=== PATIENT | female | born 1975 | race Caucasian/White ===

== ENCOUNTER 2017-04-19 08:38 | Emergency (ER) | payer BC ==
[2017-04-19 09:28] VITALS: BP 125/81
--- NOTE | 2017-04-19 09:36 | UC ---
Throat Pain/Nasal Jovany HPI - HPI Summary HPI Summary: SINUS PAIN AND PRESSURE X 4 WEEKS + NASAL CONGESTION , PND , NO FEVER, NO CHILLS - History of Current Complaint Chief Complaint: UCRespiratory Stated Complaint: CONGESTION SINUS Time Seen by Provider: 04/19/17 09:24 Hx Obtained From: Patient Hx Last Menstrual Period: 2009 Onset/Duration: Gradual Onset, Lasting Weeks - 4, Still Present Severity: Moderate Cough: None Associated Signs & Symptoms: Positive: Sinus Discomfort, Nasal Discharge. Negative: Dysphagia, FB Sensation, Drooling, Wheezing, Hoarseness, Fever, Vomiting, Rash - Allergies/Home Medications Allergies/Adverse Reactions: Allergies Allergy/AdvReac Type Severity Reaction Status Date / Time Bupropion [From Wellbutrin] Allergy Intermediate HTN Verified 04/19/17 09:19 Meperidine [From Demerol HCl] Allergy Intermediate vomit Verified 04/19/17 09:19 Celecoxib [From Celebrex] Allergy mouth sores Verified 04/19/17 09:19 Home Medications: Home Medications GuaiFENesin DM sugar free* [Robitussin DM sugar free*] 5 ml PO PRN 04/19/17 [ History] Ibuprofen TAB* [Advil TAB*] 800 mg PO Q8H PRN 04/19/17 [History Confirmed ] PMH/Surg Hx/FS Hx/Imm Hx - Additional Past Medical History Additional PMH: ? AUTOIMMUNE DISEASE Cardiovascular History: Hypertension - Surgical History Surgical History: Yes Surgery Procedure, Year, and Place: hysterectomy 2009. tonsillectomy 1994. 3 back surgeries/ L5S1 vetebral fusions- last surgery was 2009 - Family History Known Family History: Positive: Blood Disorder Negative: Diabetes Family History: HTN - Social History Alcohol Use: Rare Substance Use Type: None Smoking Status (MU): Never Smoked Tobacco - Immunization History Most Recent Influenza Vaccination: Not the 2014/2015 Season Review of Systems Constitutional: Negative Skin: Negative Eyes: Negative ENT: Sore Throat, Nasal Discharge, Sinus Congestion, Sinus Pain/Tenderness Respiratory: Cough Cardiovascular: Negative Gastrointestinal: Negative Genitourinary: Negative Is Patient Immunocompromised?: No All Other Systems Reviewed And Are Negative: Yes Physical Exam Triage Information Reviewed: Yes Appearance: Well-Appearing, No Pain Distress, Well-Nourished Vital Signs: Initial Vital Signs Temp 99.7 F 04/19/17 09:22 Pulse 92 04/19/17 09:22 Resp 18 04/19/17 09:22 BP 125/81 04/19/17 09:22 Pulse Ox 99 04/19/17 09:22 Vital Signs Reviewed: Yes Eyes: Positive: Conjunctiva Clear ENT: Positive: Normal ENT inspection, Hearing grossly normal, Pharyngeal erythema, Nasal congestion, Nasal drainage, TMs normal, Sinus tenderness - MAXILLARY. Negative: TM bulging, TM dull, TM red, Tonsillar swelling, Tonsillar exudate Respiratory: Positive: Chest non-tender, Lungs clear, Normal breath sounds, No respiratory distress Cardiovascular: Positive: RRR, No Murmur, Pulses Normal Abdominal Exam: Normal Skin Exam: Normal Throat Pain/Nasal Course/Dx - Differential Dx/Diagnosis Provider Diagnoses: SINUSITIS Discharge - Discharge Plan Condition: Stable Disposition: HOME Prescriptions: Amoxicillin/Clavulanate TAB* [Augmentin TAB 875*] 875 mg PO BID #20 tab Patient Education Materials: Sinusitis (ED) Referrals: [facility] [Primary Care Provider] - If Needed
== END 2017-04-19 09:38 | disposition home or self-care (01) ==
LOC: UCCORT 08:38
DX: J32.9 Chronic sinusitis, unspecified (principal); I10 Essential (primary) hypertension; Z90.710 Acquired absence of both cervix and uterus; Z88.5 Allergy status to narcotic agent; Z88.8 Allergy status to other drugs, medicaments and biological substances
CPT/HCPCS: 99212; G0463

== ENCOUNTER 2017-11-01 08:12 | Emergency (ER) | payer BC ==
[2017-11-01 08:27] VITALS: BP 135/95
--- NOTE | 2017-11-01 09:29 | UC ---
Back Pain HPI - HPI Summary HPI Summary: 42 year old with shoulder pain . Right shoulder pain that started 2 days ago. Pain is located in front and back of shoulder. Hurts to do ROM. Has been doing more gardening and deflecting with her autistic child. Has chronic back pain and numerous back surgeries. Child has autism who is 180 lb and ran into the mom and now with the shoulder pain with movement. No numbness. Some mild neck pain on the right side. No wrist pain . no elbow pain . She is on keto diet and wants to try to void pain meds. Has had some muscle tightness / spasms/ pain diffusely in the shoulder with movement. Can lift arm above the head but will cause some pain. No loss of strength otherwise. [ End ] - History of Current Complaint Chief Complaint: UCUpperExtremity Stated Complaint: RT SHOULDER PAIN Time Seen by Provider: 11/01/17 09:27 Hx Obtained From: Patient Hx Last Menstrual Period: 2009 Onset/Duration: Sudden Onset Pain Intensity: 8 Aggravating Factor(s): Movement, Lifting, Bending Alleviating Factor(s): Rest Related History: Similar Episode Dx As - Allergies/Home Medications Allergies/Adverse Reactions: Allergies Allergy/AdvReac Type Severity Reaction Status Date / Time bupropion Allergy See Comment Verified 11/01/17 08:25 celecoxib Allergy See Comment Verified 11/01/17 08:25 meperidine Allergy Vomiting Verified 11/01/17 08:25 Home Medications: Home Medications Multivitamins/Minerals TAB* [Theragran/minerals TAB*] 1 tab PO DAILY 11/01/17 [ History Confirmed 11/01/17] PMH/Surg Hx/FS Hx/Imm Hx Previously Healthy: Yes - Surgical History Surgical History: Yes Surgery Procedure, Year, and Place: hysterectomy 2009. tonsillectomy 1994. 3 back surgeries/ L5S1 vetebral fusions- last surgery was 2009 - Family History Known Family History: Positive: Blood Disorder Negative: Diabetes Family History: HTN - Social History Occupation: Unemployed Lives: With Family Alcohol Use: Rare Substance Use Type: None Smoking Status (MU): Never Smoked Tobacco - Immunization History Most Recent Influenza Vaccination: Not the 2014/2015 Season Review of Systems Musculoskeletal: Arthralgia, Decreased ROM Is Patient Immunocompromised?: No All Other Systems Reviewed And Are Negative: Yes Physical Exam Triage Information Reviewed: Yes Appearance: Well-Appearing, Well-Nourished, Pain Distress - moderate Vital Signs: Initial Vital Signs Temp 99.5 F 11/01/17 08:20 Pulse 88 11/01/17 08:20 Resp 18 11/01/17 08:20 BP 135/95 11/01/17 08:20 Pulse Ox 99 11/01/17 08:20 Vital Signs Reviewed: Yes Eyes: Positive: Conjunctiva Clear ENT: Positive: Hearing grossly normal Respiratory: Positive: No respiratory distress Musculoskeletal: Positive: Strength Intact, No Edema, ROM Limited @ - some pain with active forward flexion so she is hesitant to move it but can reach above head. normal strength and sensation. diffuse tenderness to palpation of shoulder anterior and posterior. no skin changes. no break in skin. no bruising. no appreciable edema. neck with no sp tenderness to step offs. neck with FROM. Neurological Exam: Normal Psychological Exam: Normal Skin Exam: Normal Diagnostics - Laboratory Diagnostic Studies Completed/Ordered: IMPRESSION: NO ACUTE OSSEOUS INJURY. IF SYMPTOMS PERSIST, RECOMMEND REPEAT IMAGING. Back Pain Course/Dx - Course Course Of Treatment: neg xray. f/u with ortho . does not appear to be rotator but patient with some pain with movement will offer sling to use for a few days . - Differential Dx/Diagnosis Differential Diagnosis/HQI/PQRI: Arthritis, Strain, Sprain Provider Diagnoses: right Shoulder pain Discharge - Sign-Out/Discharge Documenting (check all that apply): Patient Departure - Discharge Plan Condition: Good Disposition: HOME Prescriptions: Cyclobenzaprine TAB* [Flexeril 10 MG TAB*] 10 mg PO DAILY PRN #5 tab PRN Reason: Spasms Patient Education Materials: Shoulder Pain (ED) Referrals: Partha Orlando MD [Primary Care Provider] - 4 Days Dusty Mitchell MD [Medical Doctor] - If Needed (Ortho referral if needed ) - Billing Disposition and Condition Condition: GOOD Disposition: Home
--- NOTE | 2017-11-01 10:11 | RAD ---
HISTORY: pain, anterior shoulder pain COMPARISONS: None VIEWS: 4, Frontal internal rotation, external rotation, outlet, and axillary views of the right shoulder FINDINGS: BONE DENSITY: Normal. BONES: There is no displaced fracture. JOINTS: There is no arthropathy. ALIGNMENT: There is no dislocation. SOFT TISSUES: Unremarkable. OTHER FINDINGS: None. IMPRESSION: NO ACUTE OSSEOUS INJURY. IF SYMPTOMS PERSIST, RECOMMEND REPEAT IMAGING.
== END 2017-11-01 10:34 | disposition home or self-care (01) ==
LOC: UCCORT 08:12
DX: M25.511 Pain in right shoulder (principal); X50.0XXA Overexertion from strenuous movement or load, initial encounter; Y93.H2 Activity, gardening and landscaping; Y92.007 Garden or yard of unspecified non-institutional (private) residence as the place of occurrence of the external cause; Y93.89 Activity, other specified; Y92.009 Unspecified place in unspecified non-institutional (private) residence as the place of occurrence of the external cause; Z88.6 Allergy status to analgesic agent; Z88.8 Allergy status to other drugs, medicaments and biological substances
CPT/HCPCS: 99213; G0463

== ENCOUNTER 2017-12-17 17:49 | Emergency (ER) | payer BC ==
[2017-12-17 19:25] VITALS: BP 147/102
--- NOTE | 2017-12-17 20:08 | UC ---
UC General HPI - HPI Summary HPI Summary: sinus congestion x 4 days. L ear pain x 2 days. fever of 99.4 - History of Current Complaint Chief Complaint: UCEar Stated Complaint: LEFT EAR PAIN Time Seen by Provider: 12/17/17 20:01 Hx Obtained From: Patient Hx Last Menstrual Period: 2009 Onset/Duration: Gradual Onset Timing: Constant Pain Intensity: 5 Alleviating: nothing, txing with flonase - Allergy/Home Medications Allergies/Adverse Reactions: Allergies Allergy/AdvReac Type Severity Reaction Status Date / Time bupropion Allergy See Comment Verified 12/17/17 19:17 celecoxib Allergy See Comment Verified 12/17/17 19:17 meperidine Allergy Vomiting Verified 12/17/17 19:17 PMH/Surg Hx/FS Hx/Imm Hx - Additional Past Medical History Additional PMH: allergies, sinusitis, OM Cardiovascular History: Hypertension - Surgical History Surgical History: Yes Surgery Procedure, Year, and Place: hysterectomy 2009. tonsillectomy 1994. 3 back surgeries/ L5S1 vetebral fusions- last surgery was 2009 - Family History Known Family History: Positive: Blood Disorder Negative: Diabetes Family History: HTN - Social History Occupation: Employed Full-time Lives: With Family Alcohol Use: Rare Substance Use Type: None Smoking Status (MU): Never Smoked Tobacco - Immunization History Most Recent Influenza Vaccination: Not the Season Vaccination Up to Date: Yes Review of Systems Constitutional: Negative Skin: Negative Eyes: Negative ENT: Ear Ache - L, Sinus Congestion, Sinus Pain/Tenderness Respiratory: Negative Cardiovascular: Negative Gastrointestinal: Negative Genitourinary: Negative Motor: Negative Neurovascular: Negative Musculoskeletal: Negative Neurological: Negative Psychological: Negative Is Patient Immunocompromised?: No All Other Systems Reviewed And Are Negative: Yes Physical Exam Triage Information Reviewed: Yes Appearance: Well-Appearing Vital Signs: Initial Vital Signs Temp 99.2 F 12/17/17 19:18 Pulse 81 12/17/17 19:18 Resp 20 12/17/17 19:18 BP 147/102 12/17/17 19:18 Pulse Ox 100 12/17/17 19:18 Vital Signs Reviewed: Yes Eyes: Positive: Conjunctiva Clear ENT: Positive: Pharynx normal, Nasal congestion, TMs normal - R, L is yellow, Other - No mastoid tenderness or auricular adenopathy. Negative: Nasal drainage Neck: Positive: Supple, Nontender Respiratory: Positive: Lungs clear, Normal breath sounds Cardiovascular: Positive: RRR, Tachycardia Abdomen Description: Positive: Nontender, No Organomegaly, Soft Bowel Sounds: Positive: Present Musculoskeletal: Positive: ROM Intact Neurological: Positive: Alert Psychological: Positive: Age Appropriate Behavior Skin Exam: Normal Course/Dx - Course Course Of Treatment: L OM on exam. BP addressed. Hx HTN, contol with diet. pt states child is in the hospital and attributes current BP to strees. she agrees to f/u with her pcp for a recheck. - Differential Dx - Multi-Symptom Provider Diagnoses: URI, L OM. Discharge - Sign-Out/Discharge Documenting (check all that apply): Patient Departure All imaging exams completed and their final reports reviewed: No Studies - Discharge Plan Condition: Stable Disposition: HOME Prescriptions: Amoxicillin/Clavulanate TAB* [Augmentin TAB 875*] 875 mg PO BID #20 tab Patient Education Materials: Ear Infection (ED), Upper Respiratory Infection ( DC) Referrals: Partha Orlando MD [Primary Care Provider] - 7 Days - Billing Disposition and Condition Condition: STABLE Disposition: Home
== END 2017-12-17 20:16 | disposition home or self-care (01) ==
LOC: UCCORT 17:49
DX: H92.02 Otalgia, left ear (principal); J06.9 Acute upper respiratory infection, unspecified; Z88.6 Allergy status to analgesic agent; Z88.8 Allergy status to other drugs, medicaments and biological substances; Z88.5 Allergy status to narcotic agent; I10 Essential (primary) hypertension
CPT/HCPCS: 99212; G0463